=== PATIENT | male | born 1990 | race Caucasian/White ===

== ENCOUNTER 2024-03-07 07:50 | Day surgery (SDC) | payer OTHER ==
[~2024-03-07] VITALS: Ht 190.5 cm; Wt 100.3 kg
[2024-03-07] MEDS ORDERED: LIDOCAINE 2% 100MG/5ML SDV (FOR ANES.) As Ordered ONE (08:46)
[2024-03-07] MEDS ORDERED: MIDAZOLAM INJ 2MG/2ML VIAL As Ordered ONE (08:46)
[2024-03-07] MEDS ORDERED: ACETAMINOPHEN 1000MG 100ML IV BAG As Ordered ONE (08:46)
[2024-03-07] MEDS ORDERED: fentaNYL 100 MCG/2 ML INJECTION As Ordered ONE (08:46)
[2024-03-07] MEDS ORDERED: propofoL 200 MG/20 ML VIAL As Ordered ONE (08:46)
[2024-03-07] MEDS ORDERED: ceFAZolin 2 GM/D5W 50 ML IV BAG As Ordered ONE (11:14)
[2024-03-07] MEDS: ceFAZolin SOD 2 GM in IV 1 EA IV ONE (11:15)
[2024-03-07] MEDS: BACITRACIN OINTMENT 30GM TUBE As Ordered ONE (12:06)
[2024-03-07] MEDS ORDERED: ONDANSETRON 4MG 2ML VIAL IV PRN (12:10)
[2024-03-07] MEDS ORDERED: oxyCODONE 5MG TAB PO PRN (12:10)
[2024-03-07] MEDS ORDERED: LR 1,000 ML IV SCH (12:10)
[2024-03-07] MEDS ORDERED: fentaNYL 100 MCG/2 ML INJECTION IV PRN (12:10)
[2024-03-07] MEDS ORDERED: HYDROMORPHONE HCL 0.5 MG/ 0.5 ML SYRINGE IV PRN (12:10)
[2024-03-07] MEDS ORDERED: PERC5TAB12 PO (12:27)
[2024-03-07 13:03] VITALS: BP 144/94; TEMP 97; O2SAT 99
== END 2024-03-07 13:24 | disposition home or self-care (01) ==
LOC: M SDC 07:50
PROVIDERS: ATTEND Orthopaedic Surgery Hand Surgery
DX: M67.432 Ganglion, left wrist (principal); F17.200 Nicotine dependence, unspecified, uncomplicated; Z88.0 Allergy status to penicillin
CPT/HCPCS: 25111; 88305; J0131; J0665; J0690; J2250; J3010